=== PATIENT | female | born 1985 | race Caucasian/White ===

== ENCOUNTER 2022-10-21 19:19 | Emergency (ER) | payer OTHER ==
[~2022-10-21] VITALS: Ht 167.6 cm; Wt 76.7 kg
== END 2022-10-21 22:34 | disposition home or self-care (01) ==
LOC: ED 19:19
DX: S06.0X0A Concussion without loss of consciousness, initial encounter (principal); Z88.6 Allergy status to analgesic agent; W50.0XXA Accidental hit or strike by another person, initial encounter
CPT/HCPCS: 70450; 72125; 99283-25; A9270